=== PATIENT | female | born 2005 | race Caucasian/White ===

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

== ENCOUNTER 2024-04-14 02:37 | Inpatient (IN) | payer BC ==
[2024-04-14] MEDS ORDERED: NA CHLORIDE 0.9% 1,000 ML ONE ×2 (04:07→05:05)
[2024-04-14 04:11] LABS: Specific Gravity 1.016 (1.005-1.030); Urine Bacteria <20 /HPF (<20); Urine Bilirubin 1+ (Negative); Urine Blood 1+ (Negative); Urine Clarity Extremely Turbid (Clear); Urine Color Light-Yellow (Yellow); Urine Culture Reflex Order NOT NEEDED; Urine Glucose 4+ (Negative); Urine Ketones 4+ (Over) (Negative); Urine Micro Reflex YN NO BILL MICROSCOPIC; Urine Mucus 1+ /HPF (None Seen); Urine Nitrite NEGATIVE (Negative); Urine Protein 2+ (Negative); Urine RBC <5 /HPF (None Seen); Urine Urobilinogen 1+ (Normal); Urine WBC <5 /HPF (<5); Urine Yeast (Budding) Few /HPF (None Seen); Urine pH 6.5 (5.0-7.0)
[2024-04-14 04:13] LABS: Specific Gravity 1.017 (1.005-1.030)
[2024-04-14 04:16] LABS: Absolute Lymphocytes (CBC) 1.5 K/uL (0.7-4.9); Absolute Monocytes 0.9 K/uL (0.1-1.3); Absolute Neutrophil 3.4 K/uL (1.8-8.0); Basophils % 0.6 % (0-1.3); Eosinophils % 0.4 % (0-4.4); Hematocrit 44.1 % (36.0-45.0); MCH 31.8 pg (27.0-35.0); MCV 93.3 fL (80-100); MPV 8.9 fL (7.6-11.3); Monocytes % 15.1 % (3.3-12.3); Neutrophils % 57.9 % (41.7-73.7); Platelets 257 thou/uL (152-406); RBC Red Blood Cell Count 4.73 M/uL (3.86-4.86); Red Cell Distribution Width 14.5 % (12.1-15.2)
[2024-04-14 04:21] LABS: ALT/SGPT 16 U/L (13-56); Albumin 3.8 g/dL (3.4-5.0); Alkaline Phosphatase 104 U/L (45-117); BUN Blood Urea Nitrogen 10 mg/dL (7-18); Bicarbonate 12 mEq/L (21-32); Bilirubin Total 1.1 mg/dL (0.2-1.0); Globulin 3.9 g/dL (2.3-3.5); Glomerular Filtration Rate 104 ml/min (=/>90); Glucose Level 189 mg/dL (74-106); Protein, Total 7.7 g/dL (6.4-8.2); Sodium Level 138 mEq/L (136-145)
[2024-04-14 04:22] LABS: AST/SGOT < 10 U/L (15-37)
[2024-04-14] MEDS ORDERED: KCL 20 MEQ/100 mL IVPB 100 ML IV ONE (05:05)
[2024-04-14] MEDS ORDERED: D5W 1,000 ML IV ONE (05:05)
[2024-04-14] MEDS ORDERED: POTASSIUM CL SA 10 MEQ TAB PO ONE ×2 (05:05→06:45)
[2024-04-14] MEDS ORDERED: INSULIN REGULAR (HUMAN) 100 UNIT/ML ONE ×2 (05:07→06:37)
[2024-04-14 05:34] LABS: Blood Gas Oxyhemoglobin 37.9 % (94-97); Blood Gas THB 14.1 g/dl (12-18); Blood O2 Saturation 39.2 % (92-98.5)
--- NOTE | 2024-04-14 06:31 | EDPHYS ---
Physician Documentation [facility] Luz Name: Tyler Heredia Age: 18 yrs Sex: Female : 2005 Arrival Date: 04/14/2024 Time: 02:37 Bed 13 Private MD: ED Physician Deon Hobbs HPI: 04/14 04:33 This 18 yrs old Female presents to ER via Ambulatory with complaints of High Blood ec2 Sugar, TYPE I DM, General Weakness, Shortness Of Breath. 04:33 Patient arrives today due to concern for ketones in the urine. Patient been feeling ec2 unwell, has been taking her insulin medication as prescribed. Some nausea.. 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 - Infectious Disease History:: Denies. - Social history:: Patient/guardian denies using Smoking status: Patient denies any tobacco usage or history of. ROS: 04:33 Constitutional: as per hpi ec2 Exam: 04:33 Constitutional: GEN: NAD Head: atraumatic Eyes: EOMI Ears: External ears are ec2 normal. CV: regular rate LUNGS: no respiratory distress ABD: non-distended SKIN: no evidence of rashes MSK: no evidence of trauma Vital Signs: 03:16 BP 120 / 78; Pulse 92; Resp 12; Temp 98; Pulse Ox 100% ; Weight 99.79 kg; Height 5 ft. cg 10 in. ; Pain 0/10; 04:15 BP 121 / 85; Pulse 87; Resp 18; Pulse Ox 100% on R/A; pc2 05:30 BP 118 / 93; Pulse 78; Resp 16; Pulse Ox 100% on R/A; pc2 07:00 BP 122 / 90; Pulse 79; Resp 18; Pulse Ox 100% on R/A; pc2 07:50 BP 107 / 80; Pulse 83; Resp 17; Temp 97.6(TE); Pulse Ox 100% on R/A; Pain 0/10; aa5 03:16 Body Mass Index 31.57 (99.79 kg, 177.8 cm) - Percentile 95.2 % cg 03:16 Pain Scale: Adult cg 07:50 Pain Scale: Adult aa5 MDM: 03:21 Patient medically screened. ec2 04:33 Data reviewed: vital signs. ED course: Patient arrives today for evaluation of ec2 ketonuria. Examination markable for well-appearing nontoxic vigorous otherwise in no acute distress. Obtained lab work, urine studies. Pertinent for glucosuria, ketones in the urine, slight anion gap. Will give the patient crystalloid, subcu insulin, start the patient on continuous dextrose infusion and replete the patient's potassium as well. Patient with mild DKA . 05:11 ED course: Venous blood gas shows acidosis with pH of 7.17. Will proceed with subcu ec2 administration of insulin as well as dextrose and potassium replenishment. . 06:30 ED course: Patient reported no change in acid-base status with a pH of 7.18. Patient ec2 does have ketonuria, glucosuria, will start the patient on continuous IV insulin infusion and admit to ICU for DKA. Patient and family updated regarding plan of care and agreeable, discussed case with hospitalist, pending admission. . 04/14 03:29 Order name: CBC with Diff; Complete Time: 04:29 ec2 04/14 03:29 Order name: CMP; Complete Time: 04:29 ec2 04/14 03:29 Order name: UAM; Complete Time: 04:29 ec2 04/14 03:29 Order name: Test, Urine; Complete Time: 04:29 ec2 04/14 03:40 Order name: Glucose, Ancillary Testing; Complete Time: 03:54 EDMS 04/14 05:30 Order name: ABG Arterial Blood Gas; Complete Time: 05:40 EDMS 04/14 06:05 Order name: BMP; Complete Time: 06:49 ec2 04/14 06:05 Order name: ABG; Complete Time: 07:00 ec2 04/14 06:21 Order name: BHB; Complete Time: 06:49 ec2 04/14 08:00 Order name: Glucose, Ancillary Testing; Complete Time: 08:12 EDMS 04/14 03:29 Order name: IV; Complete Time: 04:15 ec2 04/14 04:36 Order name: Misc. Order: VBG; Complete Time: 04:58 ec2 04/14 04:41 Order name: [facility]. Order: repeat BMP at 0600; Complete Time: 06:08 ec2 Administered Medications: 04:10 Drug: NS 0.9% IV 1000 ml IV at 1 bolus Per protocol; 1000 mL bolus Route: IV; Rate: 1 pc2 bolus; Site: right antecubital; 05:10 Follow up: Response: No adverse reaction; IV Status: Completed infusion; IV Intake: pc2 1000ml 05:05 Drug: NS 0.9% IV 1000 ml IV at 1 bolus Per protocol; 1000 mL bolus Route: IV; Rate: 1 pc2 bolus; Site: right antecubital; 06:00 Follow up: Response: No adverse reaction; IV Status: Completed infusion; IV Intake: pc2 1000ml 05:05 Drug: Insulin Aspart Sub-Q 10 units Sub-Q once {Co-Signature: [email or web address] (Luis E Velazquez RN).} Route: Sub-Q; Site: abdomen; 05:32 Follow up: Response: No adverse reaction pc2 05:05 Drug: D5W IV 1000 ml IV at 100 ml/hr continuous Route: IV; Rate: 100 ml/hr; Site: right pc2 antecubital; 05:35 Follow up: Response: No adverse reaction pc2 08:15 Follow up: IV Status: Infusion continued upon admission aa5 05:05 Drug: Potassium Chloride PO 40 mEq PO once Route: PO; pc2 05:32 Follow up: Response: No adverse reaction pc2 05:05 Drug: Potassium Chloride IV 20 mEq IV at calculated rate once; administer over 1-2 pc2 hours Route: IV; Rate: calculated rate; Site: right antecubital; 07:11 Follow up: Response: No adverse reaction; IV Status: Completed infusion; IV Intake: pc2 100ml 06:46 CANCELLED (Physician Discretion): potassium chlorideliquid 40 meq PO once pc2 06:53 Drug: Potassium Chloride PO 40 mEq PO once Route: PO; pc2 08:15 Follow up: Response: No adverse reaction aa5 06:58 Drug: Insulin Drip - (Insulin Regular Human IVP 100 units, NS 0.9% IV 100 ml) IV at pc2 calculated rate continuous; Standard concentration 1unit/ml; Dose for DKA is 0.1 units/kg/hr {Co-Signature: [email or web address] (Luis E Velazquez RN).} Route: IV; Rate: calculated rate; Site: right antecubital; 07:10 Follow up: currently infusing at 9.9 units/hr aa5 08:15 Follow up: IV Status: Infusion continued upon admission aa5 Point of Care Testing: Blood Glucose: 07:48 Blood Glucose: 168 mg/dL; aa5 Ranges: Critical Glucose Levels:Adult <50 mg/dl or >400 mg/dl <40 mg/dl or >180 mg/dl Disposition Summary: 04/14/24 06:31 Hospitalization Ordered Notes: Hospitalization Status: Inpatient Admission ec2 Provider: Solomon Moreno ec2 Location: Intensive Care Unit ec2 Condition: Stable ec2 Problem: an acute exacerbation ec2 Symptoms: are unchanged ec2 Bed/Room Type: Standard ec2 Room Assignment: 2-(04/14/24 07:09) ja1 Diagnosis - Type 1 diabetes mellitus with ketoacidosis without coma ec2 Forms: - Medication Reconciliation Form ec2 - SBAR form ec2 - Leadership Thank You Letter ec2 Critical care time excluding procedures: 06:30 Critical care time: Bedside Care: 30 minutes, Consultation: 5 minutes. Total time: 35 ec2 minutes Signatures: Dispatcher [employer] EDMS Kana Jose, BARROW WORKER HELPER-C BARROW WORKER HELPER-Cla1 Jordyn Mac, RN RN cg Shon Bailey RN RN ja1 Deon Hobbs MD MD ec2 Beena Wang RN RN pc2 Alix Snowden RN aa5 Luis E Velazquez RN [email or web address] Corrections: (The following items were deleted from the chart) 06:06 06:06 Arterial Blood Gas+[id number].BRZ ordered. EDMS EDMS 06:46 06:21 Potassium Chloride PO Liquid 40 mEq PO once ordered. ec2 pc2 06:46 06:46 Potassium Chloride PO Liquid 40 mEq PO once ordered. pc2 pc2 07:09 06:31 ec2 ja1
--- NOTE | 2024-04-14 06:31 | ER ---
Nurse's Notes [facility] Name: Tyler Heredia Age: 18 yrs Sex: Female : 2005 Arrival Date: 04/14/2024 Time: 02:37 Bed 13 Private MD: Diagnosis: Type 1 diabetes mellitus with ketoacidosis without coma Presentation: 04/14 03:16 Chief complaint: Patient states: Pt states she is Type 1 Diabetic and she has ketones cg in her urine. Coronavirus screen: Vaccine status: Patient reports receiving the 1st dose of the Covid vaccine. Ebola Screen: No symptoms or risks identified at this time. Initial Sepsis Screen: Does the patient meet any 2 criteria? No. Patient's initial sepsis screen is negative. Risk Assessment: Do you want to hurt yourself or someone else? Patient reports no desire to harm self or others. Onset of symptoms was April 13, 2024. 03:16 Method Of Arrival: Ambulatory cg 03:16 Acuity: HERLINDA 3 cg 03:18 Initial Sepsis Screen: Does the patient have a suspected source of infection? No. pc2 Patient's initial sepsis screen is negative. Triage Assessment: 03:21 General: Appears in no apparent distress. slender, well groomed, well developed, cg Behavior is calm, drowsy. Pain: Denies pain. 03:25 Respiratory: Onset: The symptoms/episode began/occurred gradually, the patient has mild pc2 shortness of breath. 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 - Infectious Disease History:: Denies. - Social history:: Patient/guardian denies using Smoking status: Patient denies any tobacco usage or history of. Screenin:15 [facility] ED Fall Risk Assessment (Adult) History of falling in the last 3 months, pc2 including since admission No falls in past 3 months (0 pts) Confusion or Disorientation No (0 pts) Intoxicated or Sedated No (0 pts) Impaired Gait No (0 pts) Mobility Assist Device Used No (0 pt) Altered Elimination No (0 pt) Score/Fall Risk Level 0 - 2 = Low Risk Oriented to surroundings, Maintained a safe environment. Abuse screen: Denies threats or abuse. Denies injuries from another. Nutritional screening: No deficits noted. Tuberculosis screening: No symptoms or risk factors identified. Assessment: 03:25 General: Appears in no apparent distress. comfortable, obese, well groomed, well pc2 developed, Behavior is calm, cooperative, appropriate for age, Smells of ketones. Pain: Denies pain. Neuro: Ruiz Agitation-Sedation Scale (RASS): 0 - Alert and Calm Level of Consciousness is awake, alert, obeys commands, Oriented to person, place, time, situation. Cardiovascular: Patient's skin is warm and dry. Rhythm is regular. Respiratory: Airway is patent Respiratory effort is even, unlabored, Respiratory pattern is regular, symmetrical, Breath sounds are clear bilaterally. GI: No deficits noted. : Reports urinary frequency, ketones. EENT: No signs and/or symptoms were reported regarding the EENT system. Derm: No signs and/or symptoms reported regarding the dermatologic system. Musculoskeletal: No signs and/or symptoms reported regarding the musculoskeletal system. 07:10 Reassessment: Patient is alert, oriented x 3, equal unlabored respirations, skin aa5 warm/dry/pink. Pt denies any complaints at this time. . 07:30 Reassessment: Pt c/o nausea, see [facility]. . aa5 08:15 Reassessment: Patient is alert, oriented x 3, equal unlabored respirations, skin aa5 warm/dry/pink. GI: Patient currently denies nausea. Vital Signs: 03:16 BP 120 / 78; Pulse 92; Resp 12; Temp 98; Pulse Ox 100% ; Weight 99.79 kg; Height 5 ft. cg 10 in. ; Pain 0/10; 04:15 BP 121 / 85; Pulse 87; Resp 18; Pulse Ox 100% on R/A; pc2 05:30 BP 118 / 93; Pulse 78; Resp 16; Pulse Ox 100% on R/A; pc2 07:00 BP 122 / 90; Pulse 79; Resp 18; Pulse Ox 100% on R/A; pc2 07:50 BP 107 / 80; Pulse 83; Resp 17; Temp 97.6(TE); Pulse Ox 100% on R/A; Pain 0/10; aa5 03:16 Body Mass Index 31.57 (99.79 kg, 177.8 cm) - Percentile 95.2 % cg 03:16 Pain Scale: Adult cg 07:50 Pain Scale: Adult aa5 ED Course: 02:38 Patient arrived in ED. [id number] 03:03 Deon Hobbs MD is Attending Physician. ec2 03:19 Triage completed. cg 03:29 Beena Wang, RN is Primary Nurse. pc2 03:40 Arm band placed on right wrist. pc2 03:58 Inserted saline lock: 20 gauge in right antecubital area, using aseptic technique. oe Blood collected. Flushed with 10 mL NS. 04:16 Patient has correct armband on for positive identification. Bed in low position. Call pc2 light in reach. Side rails up X2. Adult w/ patient. Provided Education on: POC and time frame. Pulse ox on. NIBP on. 04:30 No provider procedures requiring assistance completed. pc2 06:20 BMP Sent. pc2 06:20 ABG Sent. pc2 06:30 BHB Sent. pc2 06:31 Kishan Moreno MD is Hospitalizing Provider. ec2 06:31 Hospitalizing Provider role handed off by Kishan Moreno MD ec2 06:31 Solomon Moreno MD is Hospitalizing Provider. ec2 07:00 Report received from KANNAN Hargrove. aa5 07:10 Report given to KANNAN Thomson. pc2 08:10 Patient admitted, IV remains in place. aa5 Administered Medications: 04:10 Drug: NS 0.9% IV 1000 ml IV at 1 bolus Per protocol; 1000 mL bolus Route: IV; Rate: 1 pc2 bolus; Site: right antecubital; 05:10 Follow up: Response: No adverse reaction; IV Status: Completed infusion; IV Intake: pc2 1000ml 05:05 Drug: NS 0.9% IV 1000 ml IV at 1 bolus Per protocol; 1000 mL bolus Route: IV; Rate: 1 pc2 bolus; Site: right antecubital; 06:00 Follow up: Response: No adverse reaction; IV Status: Completed infusion; IV Intake: pc2 1000ml 05:05 Drug: Insulin Aspart Sub-Q 10 units Sub-Q once {Co-Signature: tm6 (Luis E Velazquez pc2 RN).} Route: Sub-Q; Site: abdomen; 05:32 Follow up: Response: No adverse reaction pc2 05:05 Drug: D5W IV 1000 ml IV at 100 ml/hr continuous Route: IV; Rate: 100 ml/hr; Site: right pc2 antecubital; 05:35 Follow up: Response: No adverse reaction pc2 08:15 Follow up: IV Status: Infusion continued upon admission aa5 05:05 Drug: Potassium Chloride PO 40 mEq PO once Route: PO; pc2 05:32 Follow up: Response: No adverse reaction pc2 05:05 Drug: Potassium Chloride IV 20 mEq IV at calculated rate once; administer over 1-2 pc2 hours Route: IV; Rate: calculated rate; Site: right antecubital; 07:11 Follow up: Response: No adverse reaction; IV Status: Completed infusion; IV Intake: pc2 100ml 06:46 CANCELLED (Physician Discretion): potassium chlorideliquid 40 meq PO once pc2 06:53 Drug: Potassium Chloride PO 40 mEq PO once Route: PO; pc2 08:15 Follow up: Response: No adverse reaction aa5 06:58 Drug: Insulin Drip - (Insulin Regular Human IVP 100 units, NS 0.9% IV 100 ml) IV at pc2 calculated rate continuous; Standard concentration 1unit/ml; Dose for DKA is 0.1 units/kg/hr {Co-Signature: tm6 (Luis E Velazquez RN).} Route: IV; Rate: calculated rate; Site: right antecubital; 07:10 Follow up: currently infusing at 9.9 units/hr aa5 08:15 Follow up: IV Status: Infusion continued upon admission aa5 Medication: 04:16 VIS not applicable for this client. pc2 Point of Care Testing: Blood Glucose: 07:48 Blood Glucose: 168 mg/dL; aa5 Ranges: Intake: 05:10 IV: 1000ml; Total: 1000ml. pc2 06:00 IV: 1000ml; Total: 2000ml. pc2 07:11 IV: 100ml; Total: 2100ml. pc2 Outcome: 06:31 Decision to Hospitalize by Provider. ec2 08:10 Admitted to ICU accompanied by nurse, accompanied by tech, family with patient, via aa5 stretcher, room ICU 2 , on monitor, with chart, Report called to KANNAN Huynh 08:10 Condition: stable 08:10 Instructed on the need for admit, Demonstrated understanding of instructions, 08:15 Patient left the ED. aa5 Signatures: Alix Snowden RN RN aa5 Jordyn Mac RN RN Amisha Pascal RN RN Wyatt Galdamez Jennifer jj6 Deon Hobbs MD MD ec2 Beena Wang RN RN [facility] Luis E Velazquez RN tm6 Corrections: (The following items were deleted from the chart) 09:28 08:37 Patient left the ED. hb aa5
[2024-04-14] MEDS ORDERED: NA CHLORIDE 0.9% 100 ML ONE (06:37)
[2024-04-14 06:44] LABS: Anion Gap 17.1 mEq/L (5.0-15.0); Potassium 3.1 mEq/L (3.5-5.1)
[2024-04-14 06:48] LABS: Arterial Blood Carboxyhemoglob 1.1 % (0-1.5); Blood Gas Oxyhemoglobin 71.8 % (94-97); Blood Gas THB 13.8 g/dl (12-18)
[2024-04-14] MEDS ORDERED: GLUCAGON 1 MG/VIAL IM PRN ×2 (07:08→13:56)
[2024-04-14] MEDS ORDERED: D50W 25 GM/50 ML SYRINGE IV PRN ×2 (07:08→13:56)
[2024-04-14] MEDS: ONDANSETRON 4 MG/2 ML VIAL IV PRN (07:29)
[2024-04-14] MEDS: D5.45NS W/KCL 20MEQ 1,000 ML IV SCH (08:00)
[2024-04-14] MEDS ORDERED: INSULIN REGULAR, HUMAN 100 UNIT in NA CHLORIDE 0.9% 100 ML IV SCH (08:00)
[2024-04-14 08:55] VITALS: O2SAT 100
[2024-04-14] MEDS: ENOXAPARIN 40 MG/0.4 ML SQ SCH (09:00)
[2024-04-14] MEDS ORDERED: D10W 125 ML IV PRN (09:12)
[2024-04-14 11:26] LABS: BETA HYDROXYBUTYRATE 2.33 mmol/L (0.02-0.27)
[2024-04-14 11:28] VITALS: BMI 28.7
[2024-04-14] MEDS ORDERED: INSULIN GLARGINE 100 UNIT/ML SQ SCH (13:35)
[2024-04-14] MEDS: POTASSIUM CL SA 10 MEQ TAB PO ONE (13:43)
[2024-04-14] MEDS: INSULIN GLARGINE 100 UNIT/ML SQ ONE (13:43)
--- NOTE | 2024-04-14 14:15 | P.HP ---
Certification for Inpatient Patient admitted to: Inpatient With expected LOS: >2 Midnights Patient will require the following post-hospital care: None Practitioner: I am a practitioner with admitting privileges, knowledge of patient current condition, hospital course, and medical plan of care. Services: Services provided to patient in accordance with Admission requirements found in Title 42 Section 412.3 of the Code of Federal Regulations Patient History Date of Service: 04/14/24 Reason for admission: DKA History of Present Illness: 18-year-old female with history of type 1 diabetes presents emergency department with chief complaint of high blood sugar, ketonuria. Patient reports has been feeling unwell the past couple days and they have been checking her urine for ketones is positive, for that reason they came to the emergency department. She is evaluated in the emergency department found to be in DKA her ABG showed a pH of 7.17, pCO2 33.7 urine with 4+ ketones, initial glucose was 189 and serum ketones were also positive. She was started on insulin drip will need to be admitted for DKA. No changes in her insulin regimens at home recently she takes 72 units of Tresiba in the mornings as well as NovoLog sliding scale. Denies any fever, chills ROS otherwise negative. Allergies No Known Allergies Allergy (Unverified 01/24/22 13:28) Home Medications: Insulin Aspart [Novolog Flexpen] See Protocol SQ ACHS 04/14/24 Insulin Degludec [Tresiba] 72 unit SQ DAILY 04/14/24 - Past Medical/Surgical History Has patient received pneumonia vaccine in the past: Yes Diabetic: Yes -: Type 1 diabetes -: None Psychosocial/ Personal History: Patient lives at home with her mother, works at the [employer] - Family History Family History: Reviewed- Non-Contributory - Social History Smoking Status: Never smoker Alcohol use: Yes CD- Drugs: No Caffeine use: Yes Place of Residence: Home Review of Systems 10-point ROS is otherwise unremarkable General: Weakness, Malaise Physical Examination - Vital Signs Temperature: 97.6 F Blood Pressure: 107/80 Pulse: 83 Respirations: 17 - Physical Exam General: Alert, In no apparent distress, Oriented x3 HEENT: Atraumatic, PERRLA, EOMI Neck: Supple, 2+ carotid pulse no bruit, No LAD Respiratory: Clear to auscultation bilaterally, Normal air movement Cardiovascular: Regular rate/rhythm, Normal S1 S2 Gastrointestinal: Normal bowel sounds, No tenderness Musculoskeletal: No tenderness Integumentary: No rashes Neurological: Normal speech, Normal strength at 5/5 x4 extr, Normal tone - Studies Laboratory Data (last 24 hrs) 04/14/24 04/14/24 04/14/24 06:10 03:50 03:50 WBC 6.00 Hgb 15.0 Hct 44.1 Plt Count 257 Sodium 140 138 Potassium 3.1 L 3.0 L BUN 9 10 Creatinine 0.62 0.83 Glucose 201 H 189 H Total Bilirubin 1.1 H AST < 10 L ALT 16 Alkaline Phosphatase 104 Assessment and Plan - Plan Assessment: Type 1 diabetes with ketoacidosis Hypokalemia Plan: Type 1 diabetes with ketoacidosis Initially was on insulin drip, anion gap has now closed. Patient tolerating clear liquids will give long-acting insulin in addition to sliding scale Takes 72 units of Tresiba at home daily as well as NovoLog sliding scale Obtain A1c in the morning Continue hourly Accu-Cheks for now, await next chemistry to ensure resolution of DKA Hypokalemia Replace per protocol If needing to start back on fluids would use potassium containing fluids DVT PPX: Lovenox Code status:full Discharge Plan: Home Plan to discharge in: 48 Hours - Advance Directives Does patient have a Living Will: No Does patient have a Durable POA for Healthcare: No - Code Status/Comfort Care Code Status Assessed: Yes (Full code) Critical Care: No Time Spent Managing Pts Care (In Minutes): 60
[2024-04-14] MEDS: INSULIN REGULAR (HUMAN) 100 UNIT/ML ONE (14:23)
[2024-04-14] MEDS: INSULIN GLARGINE 100 UNIT/ML SQ SCH (14:29)
[2024-04-14] MEDS: INSULIN REGULAR (HUMAN) 100 UNIT/ML SQ SCH ×2 (14:30→21:25)
[2024-04-14 15:30] LABS: Anion Gap 14.3 mEq/L (5.0-15.0); BETA HYDROXYBUTYRATE 4.22 mmol/L (0.02-0.27); Potassium 3.3 mEq/L (3.5-5.1)
[2024-04-14] MEDS: POTASSIUM CL SA 10 MEQ TAB PO SCH (16:46)
[2024-04-14] MEDS: Ringers Lactate 1,000 ML IV SCH (17:37)
[2024-04-14] MEDS ORDERED: INSULIN REGULAR (HUMAN) 100 UNIT/ML SQ SCH (19:07)
[2024-04-14 20:12] LABS: Anion Gap 13.2 mEq/L (5.0-15.0); BETA HYDROXYBUTYRATE 1.43 mmol/L (0.02-0.27); Potassium 3.2 mEq/L (3.5-5.1)
[2024-04-15 02:06] LABS: Anion Gap 13.2 mEq/L (5.0-15.0); BETA HYDROXYBUTYRATE 2.8 mmol/L (0.02-0.27); Potassium 3.2 mEq/L (3.5-5.1)
[2024-04-15] MEDS: POTASSIUM CL SA 10 MEQ TAB PO ONE ×2 (03:17→07:16)
[2024-04-15 04:55] LABS: Absolute Eosinophils 0.1 K/uL (0-0.5); Absolute Lymphocytes (CBC) 2.7 K/uL (0.7-4.9); Absolute Monocytes 0.5 K/uL (0.1-1.3); Absolute Neutrophil 1.5 K/uL (1.8-8.0); Basophils % 0.4 % (0-1.3); Eosinophils % 1.7 % (0-4.4); Hemoglobin 13.4 g/dL (12.0-15.0); Lymphocytes % 55.8 % (15.3-44.8); MCH 31.4 pg (27.0-35.0); MCHC 34.4 g/dL (32.0-36.0); MCV 91.4 fL (80-100); MPV 8.9 fL (7.6-11.3); Monocytes % 10.8 % (3.3-12.3); Neutrophils % 31.3 % (41.7-73.7); Platelets 228 thou/uL (152-406); RBC Red Blood Cell Count 4.27 M/uL (3.86-4.86); Red Cell Distribution Width 14.2 % (12.1-15.2)
[2024-04-15 05:13] LABS: Phosphorus 1.7 mg/dL (2.5-4.9)
[2024-04-15 05:29] LABS: Anion Gap 10.8 mEq/L (5.0-15.0); BETA HYDROXYBUTYRATE 2.44 mmol/L (0.02-0.27); Potassium 2.8 mEq/L (3.5-5.1)
[2024-04-15] MEDS ORDERED: POTASSIUM CL SA 10 MEQ TAB PO SCH (07:00)
[2024-04-15] MEDS: POTASS/SODIUM PHOSPHATE 1 PKT POWD.PACK PO SCH (07:16)
[2024-04-15] MEDS: INSULIN GLARGINE 100 UNIT/ML SQ SCH (08:24)
--- NOTE | 2024-04-15 10:19 | P.DS ---
Admission Date: 04/14/24 Discharge Date: 04/15/24 Disposition: ROUTINE DISCHARGE Discharge Condition: GOOD Reason for Admission: DKA Brief History of Present Illness: 18-year-old female with history of type 1 diabetes presents emergency department with chief complaint of high blood sugar, ketonuria. Patient reports has been feeling unwell the past couple days and they have been checking her urine for ketones is positive, for that reason they came to the emergency department. She is evaluated in the emergency department found to be in DKA her ABG showed a pH of 7.17, pCO2 33.7 urine with 4+ ketones, initial glucose was 189 and serum ketones were also positive. She was started on insulin drip will need to be admitted for DKA. No changes in her insulin regimens at home recently she takes 72 units of Tresiba in the mornings as well as NovoLog sliding scale. Denies any fever, chills ROS otherwise negative. Hospital Course: Assessment: Type 1 diabetes with ketoacidosis Hypokalemia General: Alert, In no apparent distress, Oriented x3 HEENT: Atraumatic, PERRLA, EOMI Neck: Supple, 2+ carotid pulse no bruit, No LAD Respiratory: Clear to auscultation bilaterally, Normal air movement Cardiovascular: Regular rate/rhythm, Normal S1 S2 Gastrointestinal: Normal bowel sounds, No tenderness Musculoskeletal: No tenderness Integumentary: No rashes Neurological: Normal speech, Normal strength at 5/5 x4 extr, Normal tone Patient was admitted to the hospital for DKA, she reports that she has been very compliant with her long-acting Tresiba which she takes 72 units of daily although she has not been as compliant with her correction scale insulin that she takes, her blood sugar had been running high at home for the past couple of weeks as she was without her CGM. Upon arrival to ER patient was found to be in DKA and started on an insulin drip. IV fluids, insulin drip were continued until anion gap closed the patient was transitioned to long-acting insulin. She tolerated her diet and is stable for discharge this morning. Recommend she resumes her Tresiba, correction scale insulin and encouraged more compliance with depression scale insulin. Her A1c was checked and it was 11.6, recommend close follow-up with endocrinology for further management. Vital Signs/Physical Exam: Temp Pulse Resp BP Pulse Ox 97.9 F 66 20 107/69 100 08/18/24 20:00 04/15/24 06:00 04/15/24 06:00 04/15/24 06:00 04/15/24 06:00 General: Alert, In no apparent distress, Oriented x3 HEENT: Atraumatic, PERRLA Neck: Supple, JVD not distended Respiratory: Clear to auscultation bilaterally, Normal air movement Cardiovascular: Regular rate/rhythm, Normal S1 S2 Gastrointestinal: Normal bowel sounds, No tenderness Musculoskeletal: No tenderness Integumentary: No rashes Neurological: Normal speech, Normal tone, Normal affect Laboratory Data at Discharge: WBC 4.90 thou/uL (4.3-10.9) 04/15/24 04:36 Hgb 13.4 g/dL (12.0-15.0) D 04/15/24 04:36 Hct 39.0 % (36.0-45.0) 04/15/24 04:36 Plt Count 228 thou/uL (152-406) 04/15/24 04:36 Sodium Cancelled 04/15/24 15:00 Potassium Cancelled 04/15/24 15:00 BUN Cancelled 04/15/24 15:00 Creatinine Cancelled 04/15/24 15:00 Glucose Cancelled 04/15/24 15:00 Phosphorus 1.7 mg/dL (2.5-4.9) L 04/15/24 04:36 Magnesium 2.0 mg/dL (1.6-2.4) 04/15/24 04:36 Total Bilirubin 1.1 mg/dL (0.2-1.0) H 04/14/24 03:50 AST < 10 U/L (15-37) L 04/14/24 03:50 ALT 16 U/L (13-56) 04/14/24 03:50 Alkaline Phosphatase 104 U/L (45-117) 04/14/24 03:50 Triglycerides 131 mg/dL (<150) 04/15/24 04:36 Cholesterol 130 mg/dL (<200) 04/15/24 04:36 HDL Cholesterol 44 mg/dL (40-60) 04/15/24 04:36 Cholesterol/HDL Ratio 2.95 04/15/24 04:36 Home Medications: Insulin Aspart [Novolog Flexpen] See Protocol SQ ACHS 04/14/24 Insulin Degludec [Tresiba] 72 unit SQ DAILY 04/14/24 Physician Discharge Instructions: Follow up with an Internal Medicine Physician of your choice: ELIAZAR RODRIGUEZ MD [address] [facility], [address] [place] [address] ACCEPTING NEW PATIENTS! TOMY SRINIVASAN MD [address] [facility], [place] [address] JUAN MANUEL ABREU MD [address] [place] [address] MARGARET JONES MD [address] [facility], [facility] [place] [address] DIANA MTZ MD [address] [place] [address] Follow up with a Family Medicine Physician of your choice: CHRISTOPHER MEJIA MD [address] [facility], [address] [place] [address] ACCEPTING NEW PATIENTS! ELIAZAR RODRIGUEZ MD [address] [facility], [address] [place] [address] ACCEPTING NEW PATIENTS! GENE SIMPSON, DO [address] [address] LOGAN ZHAO MD [address] [facility], [address] [place] [address] ISRAEL QUEZADA MD [address] [facility], [address] [place] [address] LISA KELLOGG MD [address] [facility], [place] [address] [place] [address] MARIUM ABREU MD [address] [place] [address] MILTON TIRADOP [address] [address], [address] [place] [address] JOSSUE ENAMORADO MD [address] [facility], [address] [place] [address] GWEN ENAMORADO APRN [employer] [address] [facility] [facility], [address] [place] [address] [facility] GUZ[facility], DO [address], [address] [place] [address] PROBLEM: DKA GOAL: Clear understanding of disease process INSTRUCTIONS:Follow up with PCP of choice, arborist representative recommended Diet: ADA Activity: Ad genevieve DME DME: Date Ordered: Name of Company: [employer] Services Needed: Name of Company: Date or Referral: IMMUNIZATION Influenza Vaccine Indicated: Influenza Vaccine Given: Date Given: Pneumonia Vaccine Indicated: No Pneumonia Vaccine Given: Date Given: Patient was admitted to the hospital for DKA, she reports that she has been very compliant with her long-acting Tresiba which she takes 72 units of daily although she has not been as compliant with her correction scale insulin that she takes, her blood sugar had been running high at home for the past couple of weeks as she was without her CGM. Upon arrival to ER patient was found to be in DKA and started on an insulin drip. IV fluids, insulin drip were continued until anion gap closed the patient was transitioned to long-acting insulin. She tolerated her diet and is stable for discharge this morning. Recommend she resumes her Tresiba, correction scale insulin and encouraged more compliance with depression scale insulin. Her A1c was checked and it was 11.6, recommend close follow-up with endocrinology for further management. Diet: ADA Activity: Ad genevieve Followup: NONE,NONE [Primary Care Provider] - 1 Week Time spent managing pt's care (in minutes): 35
[2024-04-15 11:12] VITALS: BP 108/59; TEMP 98.4
== END 2024-04-15 10:40 | disposition home or self-care (01) | DRG 639 ==
LOC: ER 02:37 → ERHOLD 07:00 → 3RD-ICU 08:12
PROVIDERS: ADMIT Hospitalist; ATTEND Hospitalist
PROC: 4A033R1 Measurement of Arterial Saturation, Peripheral, Percutaneous Approach (ICD-10-PCS; principal; 2024-04-14)
DX: E10.10 Type 1 diabetes mellitus with ketoacidosis without coma (principal); E87.6 Hypokalemia; Z79.4 Long term (current) use of insulin; Z91.199 Patient's noncompliance with other medical treatment and regimen due to unspecified reason
CPT/HCPCS: 36415; 36600; 80048; 80053; 80061; 81001; 81025; 82010; 82805; 82947; 83036; 83735; 84100; 84132; 85025; 96361; 96365; 96366; 96372; 99285; J1650; J2405; J3480; J7030; J7120